=== PATIENT | female | born 1940 | race Caucasian/White ===

== ENCOUNTER 2018-08-28 08:46 | Emergency (ER) | payer MEDICARE, OTHER ==
[~2018-08-28] VITALS: Ht 167.6 cm; Wt 90.9 kg
[2018-08-28 08:50] VITALS: Ht 167.6 cm; Wt 90.9 kg
[2018-08-28] MEDS ORDERED: OMEGA-3100 MG PO (08:54)
[2018-08-28] MEDS ORDERED: CENTRUM SILVER1 EAC3 PO (08:55)
[2018-08-28] MEDS ORDERED: METROGEL 0.75 %45 GM TOPICAL (08:55)
[2018-08-28] MEDS ORDERED: FIBER-TABS625 MG PO (08:55)
[2018-08-28] MEDS ORDERED: NORVASC5 MG PO (08:56)
[2018-08-28] MEDS ORDERED: BAYER CHEWABLE81 MG PO (08:56)
[2018-08-28] MEDS ORDERED: PRIMSOL50 MG/5 ML PO (08:56)
[2018-08-28] MEDS ORDERED: COZAAR50 MG (08:56)
[2018-08-28] MEDS ORDERED: ZYRTEC10 MG PO (08:56)
[2018-08-28] MEDS ORDERED: INDERAL 40 MG T40 MG PO (08:57)
[2018-08-28] MEDS ORDERED: MYSOLINE250 MG PO (08:57)
[2018-08-28] MEDS ORDERED: OXYBUTYNIN CHLOR5 M1 PO (08:58)
[2018-08-28] MEDS ORDERED: OMEPRAZOLE20 M1 PO (08:58)
[2018-08-28] MEDS ORDERED: HYDROCHLOROTH12.5 M1 PO (08:58)
[2018-08-28] MEDS ORDERED: GABAPENTIN100 MG PO (08:58)
[2018-08-28] MEDS ORDERED: ZETIA10 MG PO (08:59)
[2018-08-28] MEDS ORDERED: GLUCOTROL ER2.5 MG PO (08:59)
[2018-08-28] MEDS ORDERED: INDERAL LA160 MG PO (08:59)
[2018-08-28] MEDS ORDERED: RESTASIS (09:00)
[2018-08-28] MEDS ORDERED: MAG-OXIDE400 MG PO (09:00)
[2018-08-28] MEDS ORDERED: ULTRAM50 MG PO (10:01)
[2018-08-28 10:28] VITALS: BP 142/76
== END 2018-08-28 10:29 | disposition home or self-care (01) ==
LOC: D.ER 08:46
DX: S39.012A Strain of muscle, fascia and tendon of lower back, initial encounter (principal); W18.30XA Fall on same level, unspecified, initial encounter; Y93.89 Activity, other specified; Y92.019 Unspecified place in single-family (private) house as the place of occurrence of the external cause